=== PATIENT | female | born 1980 | race Caucasian/White ===

== ENCOUNTER 2016-09-14 13:34 | Emergency (ER) | payer OTHER ==
[2016-09-14 15:12] LABS: BASOPHIL 0.3 % (0-2); EOSINOPHIL 1.6 % (0-5); HCT 40.8 % (37.0-47.0); HGB 13.8 g/dl (12.5-16.0); LYMPHOCYTE 12.4 % (15-48); MCH 27.6 pg (25.0-31.0); MCHC 33.8 g/dL (32.0-36.0); MCV 81.6 fL (78.0-100.0); MONOCYTE 5.1 % (0-12); MPV 10.2 fL (6.0-9.5); NEUTROPHIL 80.6 % (41-80); PLT 183 K/uL (150-400); RDW 14.3 % (11.5-14.0); WBC 6.9 K/uL (4.0-10.5)
[2016-09-14 15:30] LABS: ALBUMIN 4.4 g/dL (3.5-5.0); BILIRUBIN - TOTAL 0.8 mg/dL (0.1-1.0); CREATININE 0.6 mg/dL (0.5-1.0); GLOBULIN (CALCULATION) 3.7 g/dL (2.2-4.2); POTASSIUM 4.1 mmol/L (3.5-5.1); TOTAL PROTEIN 8.1 g/dL (6.4-8.3)
[2016-09-14 15:34] LABS: BILIRUBIN NEGATIVE (NEGATIVE); BLOOD TRACE-INTACT Ery/uL (NEGATIVE); CLARITY CLEAR (CLEAR); COLOR YELLOW (YELLOW); GLUCOSE (U) NORMAL (NORMAL); KETONE (U) NEGATIVE (NEGATIVE); LEUKOCYTES NEGATIVE Leu/uL (NEGATIVE); NITRITE NEGATIVE (NEGATIVE); PROTEIN NEGATIVE (NEGATIVE); UROBILINOGEN 0.2 mg/dL (0.2-1.0); pH 5.5 (5.0-9.0)
[2016-09-14 15:38] LABS: BACTERIA TRACE
== END 2016-09-14 18:04 | disposition home or self-care (01) ==
LOC: FER 13:34
PROVIDERS: Nurse Practitioner Family
DX: J41.1 Mucopurulent chronic bronchitis (principal); N39.0 Urinary tract infection, site not specified; F17.210 Nicotine dependence, cigarettes, uncomplicated; Z88.1 Allergy status to other antibiotic agents
CPT/HCPCS: 36415; 71020; 80053; 81001; 82150; 83690; 85025; 96372; J2930

== ENCOUNTER 2016-12-07 13:34 | Emergency (ER) | payer OTHER | END 2016-12-07 15:10 | disposition home or self-care (01) | LOC: FER 13:34 | DX: S90.122A Contusion of left lesser toe(s) without damage to nail, initial encounter (principal); F17.210 Nicotine dependence, cigarettes, uncomplicated; W22.8XXA Striking against or struck by other objects, initial encounter; Y92.009 Unspecified place in unspecified non-institutional (private) residence as the place of occurrence of the external cause | CPT/HCPCS: 73630 ==

== ENCOUNTER 2020-08-11 00:38 | Emergency (ER) | payer OTHER ==
[~2020-08-11 00:38] MED LIST: CLEOCIN300 MG PO; HYDROCODON-ACE1 EAC4 PO; OMEPRAZOLE40 MG PO; SUCRALFATE1 GM PO; TRAMADOL HCL50 MG PO
[2020-08-11 01:57] LABS: BASOPHIL 0.8 % (0-2); EOSINOPHIL 2.1 % (0-5); HCT 34.5 % (37.0-47.0); HGB 10.9 g/dl (12.5-16.0); LYMPHOCYTE 22.5 % (15-48); MCH 25.1 pg (25.0-31.0); MCHC 31.6 g/dL (32.0-36.0); MCV 79.5 fL (78.0-100.0); MONOCYTE 5.5 % (0-12); MPV 11.9 fL (6.0-9.5); NEUTROPHIL 68.6 % (41-80); NRBC 0; PLT 152 K/uL (150-400); RBC 4.34 M/uL (4.20-5.40); RDW 14.7 % (11.5-14.0); WBC 6.1 K/uL (4.0-10.5)
[2020-08-11 02:14] LABS: ALBUMIN 2.8 g/dL (3.4-5.0); BILIRUBIN - TOTAL 0.3 mg/dL (0.2-1.0); BUN/CREAT RATIO (CALC) 18.3 RATIO; CREATININE 0.6 mg/dL (0.51-0.95); GLOBULIN (CALCULATION) 4.1 g/dL; TOTAL PROTEIN 6.9 g/dL (6.4-8.2)
[2020-08-11 02:26] LABS: BILIRUBIN NEGATIVE (NEGATIVE); BLOOD NEGATIVE Ery/uL (NEGATIVE); CLARITY CLEAR (CLEAR); COLOR YELLOW (YELLOW); GLUCOSE (U) 3+ mg/dL (NORMAL); LEUKOCYTES NEGATIVE Leu/uL (NEGATIVE); NITRITE NEGATIVE (NEGATIVE); PROTEIN NEGATIVE (NEGATIVE); SPECIFIC GRAVITY 1.015 (1.001-1.030); UROBILINOGEN 0.2 mg/dL (0.2-1.0); pH 6.5 (5.0-9.0)
== END 2020-08-11 03:20 | disposition left against medical advice (07) ==
LOC: FER 00:38
PROVIDERS: Emergency Medicine
DX: R10.33 Periumbilical pain (principal); K46.9 Unspecified abdominal hernia without obstruction or gangrene; I10 Essential (primary) hypertension; J44.9 Chronic obstructive pulmonary disease, unspecified; I51.9 Heart disease, unspecified; E78.5 Hyperlipidemia, unspecified; E66.9 Obesity, unspecified; F17.200 Nicotine dependence, unspecified, uncomplicated; Z90.49 Acquired absence of other specified parts of digestive tract; Z98.890 Other specified postprocedural states; Z98.84 Bariatric surgery status; Z88.1 Allergy status to other antibiotic agents; Z79.899 Other long term (current) drug therapy; Z53.8 Procedure and treatment not carried out for other reasons
CPT/HCPCS: 36415; 80053; 81003; 85025; J7040; Q9967

== ENCOUNTER 2020-10-27 19:11 | Emergency (ER) | payer OTHER ==
[2020-10-27 19:46] LABS: BASOPHIL 0.6 % (0-2); EOSINOPHIL 1.4 % (0-5); HCT 35.9 % (37.0-47.0); HGB 11.4 g/dl (12.5-16.0); LYMPHOCYTE 17.6 % (15-48); MCH 24.3 pg (25.0-31.0); MCHC 31.8 g/dL (32.0-36.0); MCV 76.4 fL (78.0-100.0); MONOCYTE 6.7 % (0-12); MPV 10.5 fL (6.0-9.5); NEUTROPHIL 72.9 % (41-80); NRBC 0; PLT 212 K/uL (150-400); WBC 8.5 K/uL (4.0-10.5)
[2020-10-27 19:51] LABS: INR 1.09 (0.9-1.2); PROTHROMBIN TIME 13.4 SECONDS (11.4-13.6); PTT 32.1 SECONDS (22.2-34.7)
[2020-10-27 19:59] LABS: BILIRUBIN - TOTAL 0.7 mg/dL (0.2-1.0); BUN/CREAT RATIO (CALC) 11.1 RATIO; CREATININE 0.54 mg/dL (0.51-0.95); GLOBULIN (CALCULATION) 4.6 g/dL; POTASSIUM 4.1 mmol/L (3.5-5.1); TOTAL PROTEIN 7.6 g/dL (6.4-8.2)
[2020-10-27 20:02] LABS: LACTIC ACID 1.9 mmol/L (0.4-1.9)
[2020-10-27 20:57] LABS: BILIRUBIN NEGATIVE (NEGATIVE); BLOOD NEGATIVE Ery/uL (NEGATIVE); CLARITY CLEAR (CLEAR); COLOR YELLOW (YELLOW); GLUCOSE (U) 3+ mg/dL (NORMAL); LEUKOCYTES NEGATIVE Leu/uL (NEGATIVE); NITRITE NEGATIVE (NEGATIVE); PROTEIN NEGATIVE (NEGATIVE)
== END 2020-10-27 22:29 | disposition home or self-care (01) ==
LOC: FER 19:11
PROVIDERS: Emergency Medicine Emergency Medical Services
DX: R51.9 Headache, unspecified (principal); E11.65 Type 2 diabetes mellitus with hyperglycemia; L02.211 Cutaneous abscess of abdominal wall; F17.210 Nicotine dependence, cigarettes, uncomplicated; Z88.1 Allergy status to other antibiotic agents
CPT/HCPCS: 36415; 70450; 71045; 80053; 81003; 82009; 82550; 83605; 84484; 85025; 85610; 85730; 87040; 93005; J2405; J7030

== ENCOUNTER 2020-12-11 17:03 | Emergency (ER) | payer MEDICARE, OTHER ==
[2020-12-11] MEDS ORDERED: DOXYCYCLINE MO100 MG PO (17:42)
== END 2020-12-11 18:25 | disposition home or self-care (01) ==
LOC: FER 17:03
DX: Z48.817 Encounter for surgical aftercare following surgery on the skin and subcutaneous tissue (principal); I10 Essential (primary) hypertension; F17.210 Nicotine dependence, cigarettes, uncomplicated; E11.9 Type 2 diabetes mellitus without complications; Z98.890 Other specified postprocedural states; Z90.710 Acquired absence of both cervix and uterus; Z90.49 Acquired absence of other specified parts of digestive tract; Z88.1 Allergy status to other antibiotic agents
CPT/HCPCS: 87070; 87077; 87186; 87205; 99282

== ENCOUNTER 2021-01-16 22:27 | Emergency (ER) | payer OTHER ==
[~2021-01-16 22:27] MED LIST changes: +DOXYCYCLINE MO100 MG PO
== END 2021-01-17 00:15 | disposition left against medical advice (07) ==
LOC: FER 22:27
DX: L03.311 Cellulitis of abdominal wall (principal); F17.210 Nicotine dependence, cigarettes, uncomplicated; Z88.1 Allergy status to other antibiotic agents
CPT/HCPCS: 99283; J1170; J2405